=== PATIENT | female | born 2000 | race African-American/Black ===

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

== ENCOUNTER 2020-01-07 06:22 | Inpatient (IN) | payer MEDICAID, OTHER ==
[~2020-01-07] VITALS: Ht 167.6 cm; Wt 112.2 kg
[2020-01-07] MEDS ORDERED: OXYTOCIN 30U/ 0.9% NaCL 500ML 500 ML IV ONE (06:23)
[2020-01-07] MEDS ORDERED: D5%-LACTATED RINGERS 1,000 ML IV SCH (06:23)
[2020-01-07] MEDS ORDERED: MISOPROSTOL 25 MCG TABLET VG PRN (06:30)
[2020-01-07] MEDS ORDERED: TERBUTALINE 1 MG/ML, 1ML SQ PRN (06:30)
[2020-01-07] MEDS ORDERED: FENTANYL PF 100 MCG/2ML IV PRN (06:30)
[2020-01-07] MEDS ORDERED: TERBUTALINE 1 MG/ML, 1ML IVPush PRN (06:30)
[2020-01-07 06:32] VITALS: BP 129/61
[2020-01-07] MEDS ORDERED: PREN-3 PO (06:37)
[2020-01-07 06:49] LABS: BASOPHILS # (AUTO) 0.03 x10^3/uL (0-0.3); BASOPHILS % (AUTO) 0 % (0-1); EOSINOPHILS # (AUTO) 0.22 x10^3/uL (0-0.8); EOSINOPHILS % (AUTO) 2 % (1-7); LYMPHOCYTES # (AUTO) 1.99 x10^3/uL (1-6.1); LYMPHOCYTES % (AUTO) 20 % (22-44); MD NO; MEAN CORPUSCULAR HEMOGLOBIN 26.6 pg (27.0-34.8); MEAN CORPUSCULAR HGB CONC 32.9 g/dL (32.4-35.8); MEAN CORPUSCULAR VOLUME 80.8 fL (80-100); MEAN PLATELET VOLUME 7.2 fL (7.4-10.4); MONOCYTES # (AUTO) 0.78 x10^3/uL (0-1.4); MONOCYTES % (AUTO) 8 % (2-9); NEUTROPHILS # (AUTO) 7.17 x10^3/uL (1.8-8.0); NEUTROPHILS % (AUTO) 70 % (42-75); PLATELET COUNT 348 x10^3/uL (130-400); RED BLOOD COUNT 4.14 x10^6/uL (3.82-5.3); RED CELL DISTRIBUTION WIDTH 14.2 % (9.6-15.2)
[2020-01-07] MEDS: LACTATED RINGERS 1,000 ML IV SCH ×2 (06:53→13:47)
[2020-01-07] MEDS ORDERED: MISOPROSTOL 25 MCG TABLET ONE (07:14)
[2020-01-07] MEDS ORDERED: OXYTOCIN 30U/ 0.9% NaCL 500ML 500 ML ONE (07:14)
[2020-01-07] MEDS ORDERED: NEWBORN KIT ONE (07:14)
[2020-01-07] MEDS ORDERED: ONDANSETRON 2MG/ML, 2ML ONE (09:33)
[2020-01-07] MEDS: ONDANSETRON 2MG/ML, 2ML IVPush PRN (09:34)
[2020-01-07] MEDS ORDERED: FENTANYL/BUPIV./NS/PF 250 ML EPIDCONT ONE (13:30)
[2020-01-07] MEDS ORDERED: LACTATED RINGERS 1,000 ML IVBOLUS PRN ×2 (13:30→17:00)
[2020-01-07] MEDS ORDERED: FENTANYL PF 100 MCG/2ML ONE ×2 (13:35→14:56)
[2020-01-07] MEDS: FENTANYL PF 100 MCG/2ML IVPush PRN ×2 (13:43→14:59)
[2020-01-07] MEDS ORDERED: FENTANYL PF 500 MCG, BUPIVACAINE/PF 0.5%, 30ML 62.5 ML in SODIUM CHLORIDE 0.9% 177.5 ML EPIDCONT SCH (14:00)
[2020-01-07] MEDS ORDERED: FENTANYL/BUPIV./NS/PF 250 ML EPIDCONT SCH (16:43)
[2020-01-07] MEDS ORDERED: LACTATED RINGERS 1,000 ML IV SCH (16:43)
[2020-01-07] MEDS ORDERED: BUPIVACAINE 0.25% ONE (16:46)
[2020-01-07] MEDS ORDERED: EPHEDRINE 50 MG/ML, 1ML IVPush PRN (17:00)
[2020-01-07] MEDS ORDERED: NALOXONE 0.4 MG/ML, 1ML IVPush PRN (17:00)
[2020-01-07] MEDS ORDERED: OXYTOCIN 30U/ 0.9% NaCL 500ML 500 ML IV PRN (17:57)
[2020-01-07] MEDS ORDERED: DIPHENHYDRAMINE 25 MG CAPSULE ONE ×2 (23:16→23:58)
[2020-01-08] MEDS: ONDANSETRON 2MG/ML, 2ML IVPush PRN (00:03)
[2020-01-08] MEDS ORDERED: SODIUM CITRATE/CITRIC ACID 30 ML UDC ONE (00:59)
[2020-01-08] MEDS ORDERED: METOCLOPRAMIDE 5 MG/ML, 2ML ONE (00:59)
[2020-01-08] MEDS ORDERED: LACTATED RINGERS 1,000 ML IV SCH ×2 (01:36→07:28)
[2020-01-08] MEDS ORDERED: MIDAZOLAM 1 MG/ML, 2ML IV PRN (02:00)
[2020-01-08] MEDS ORDERED: ONDANSETRON 2MG/ML, 2ML IVPush PRN ×2 (02:00→10:30)
[2020-01-08] MEDS ORDERED: NALOXONE 0.4 MG/ML, 1ML IVPush PRN (02:00)
[2020-01-08] MEDS ORDERED: PROMETHAZINE 25 MG/ML, 1ML IV PRN (02:00)
[2020-01-08] MEDS ORDERED: ALBUTEROL SULFATE 2.5 MG/3 ML NPPB PRN (02:00)
[2020-01-08] MEDS ORDERED: OXYcodone 5 MG/5 ML ORAL.SOL UDC PO PRN (02:00)
[2020-01-08] MEDS ORDERED: HYDROmorphone 2 MG/ML, 1ML IVPush PRN (02:00)
[2020-01-08] MEDS ORDERED: HYDROcodone/APAP 7.5-325MG/15ML UDC PO PRN (02:00)
[2020-01-08] MEDS ORDERED: MEPERIDINE/PF 25MG/0.5ML IVPush PRN (02:00)
[2020-01-08] MEDS ORDERED: LABETALOL 5MG/ML, 20ML IV PRN (02:00)
[2020-01-08] MEDS ORDERED: hydrALAzine 20 MG/ML, 1ML IV PRN (02:00)
[2020-01-08] MEDS ORDERED: EPHEDRINE 50 MG/ML, 1ML IVPush PRN ×3 (02:00→10:30)
[2020-01-08] MEDS ORDERED: FENTANYL PF 100 MCG/2ML IV PRN (02:00)
[2020-01-08] MEDS ORDERED: SODIUM CITRATE/CITRIC ACID 30 ML UDC PO ONE (02:30)
[2020-01-08] MEDS ORDERED: OXYTOCIN 10 UNITS/ML, 1ML ONE (04:48)
[2020-01-08] MEDS ORDERED: KETOROLAC 30 MG/1 ML ONE (04:48)
[2020-01-08] MEDS ORDERED: PROPOFOL 10 MG/ML, 20ML ONE (04:48)
[2020-01-08] MEDS ORDERED: EPHEDRINE 50 MG/ML, 1ML ONE (04:48)
[2020-01-08] MEDS ORDERED: PHENYLEPHRINE 10 MG/ML ONE (04:48)
[2020-01-08] MEDS ORDERED: CEFAZOLIN 1,000 MG ONE (04:48)
[2020-01-08] MEDS ORDERED: SUCCINYLCHOLINE 20 MG/ML, 10ML ONE (04:48)
[2020-01-08] MEDS ORDERED: ONDANSETRON 2MG/ML, 2ML ONE ×2 (04:48)
[2020-01-08] MEDS ORDERED: DEXAMETHASONE 4 MG/ML, 1ML ONE (04:48)
[2020-01-08] MEDS ORDERED: FENTANYL PF 100 MCG/2ML ONE ×2 (04:52→04:53)
[2020-01-08] MEDS ORDERED: morphine SULFATE/PF 0.5 MG/ML, 10ML ONE (05:38)
[2020-01-08] MEDS ORDERED: LABETALOL 5MG/ML, 20ML ONE (05:59)
[2020-01-08 06:42] LABS: MICROSCOPIC INDICATED
[2020-01-08 06:57] LABS: ALANINE AMINOTRANSFERASE 15 U/L (12-78); ALBUMIN 2.6 g/dL (3.4-5.0); ANION GAP 8 mmol/L (5-15); BILIRUBIN, DIRECT 0.2 mg/dL (0.1-0.2); CALCIUM 9.1 mg/dL (8.5-10.1); CHLORIDE 108 mmol/L (98-107); CREATININE 0.73 mg/dL (0.55-1.02); MEAN CORPUSCULAR HEMOGLOBIN 26.5 pg (27.0-34.8); MEAN CORPUSCULAR HGB CONC 32.9 g/dL (32.4-35.8); MEAN CORPUSCULAR VOLUME 80.6 fL (80-100); MEAN PLATELET VOLUME 7.5 fL (7.4-10.4); PLATELET COUNT 326 x10^3/uL (130-400); RED BLOOD COUNT 4.33 x10^6/uL (3.82-5.3); RED CELL DISTRIBUTION WIDTH 14.1 % (9.6-15.2)
[2020-01-08 07:00] LABS: ALKALINE PHOSPHATASE 160 U/L (45-117); BILIRUBIN,TOTAL 1.2 mg/dL (0.2-1.0); TOTAL PROTEIN 6.7 g/dL (6.4-8.2)
[2020-01-08] MEDS: OXYTOCIN 30U/ 0.9% NaCL 500ML 500 ML IV SCH ×2 (07:28→17:28)
[2020-01-08 07:29] LABS: BASOPHILS # (AUTO) 0.01 x10^3/uL (0-0.3); BASOPHILS % (AUTO) 0 % (0-1); EOSINOPHILS # (AUTO) 0.03 x10^3/uL (0-0.8); EOSINOPHILS % (AUTO) 0 % (1-7); LYMPHOCYTES # (AUTO) 0.97 x10^3/uL (1-6.1); LYMPHOCYTES % (AUTO) 5 % (22-44); MD SCAN; MONOCYTES # (AUTO) 0.84 x10^3/uL (0-1.4); MONOCYTES % (AUTO) 5 % (2-9); NEUTROPHILS # (AUTO) 16.51 x10^3/uL (1.8-8.0); NEUTROPHILS % (AUTO) 90 % (42-75)
[2020-01-08] MEDS: LACTATED RINGERS 1,000 ML IV SCH ×2 (07:35→17:28)
[2020-01-08] MEDS ORDERED: OXYcodone/APAP 5/325MG TABLET PO PRN ×2 (08:00→10:30)
[2020-01-08] MEDS ORDERED: morphine SULFATE 10 MG/ML, 1ML IVPush PRN (08:00)
[2020-01-08] MEDS ORDERED: MISOPROSTOL 200 MCG TABLET PR PRN (08:00)
[2020-01-08] MEDS: PRENATAL VIT/IRON/FA 1 EACH TABLET PO SCH (09:00)
[2020-01-08] MEDS ORDERED: HYDROmorphone 1 MG/ML, 1ML INJ ONE (09:44)
[2020-01-08] MEDS ORDERED: HYDROmorphone 1 MG/ML, 1ML INJ IVPush PRN (10:30)
[2020-01-08] MEDS ORDERED: FENTANYL PF 100 MCG/2ML IVPush PRN (10:30)
[2020-01-08] MEDS ORDERED: DIPHENHYDRAMINE 50 MG/ML, 1ML IV PRN (10:30)
[2020-01-08] MEDS ORDERED: NALOXONE 0.4 MG/ML, 1ML IV PRN ×3 (10:30)
[2020-01-08] MEDS ORDERED: METOCLOPRAMIDE 5 MG/ML, 2ML IV PRN (10:30)
[2020-01-08 13:12] LABS: MEAN CORPUSCULAR HEMOGLOBIN 26.3 pg (27.0-34.8); MEAN CORPUSCULAR HGB CONC 32.3 g/dL (32.4-35.8); MEAN CORPUSCULAR VOLUME 81.6 fL (80-100); MEAN PLATELET VOLUME 7.4 fL (7.4-10.4); PLATELET COUNT 331 x10^3/uL (130-400); RED BLOOD COUNT 4.21 x10^6/uL (3.82-5.3); RED CELL DISTRIBUTION WIDTH 14.1 % (9.6-15.2)
[2020-01-08 13:25] LABS: BASOPHILS # (AUTO) 0.04 x10^3/uL (0-0.3); BASOPHILS % (AUTO) 0 % (0-1); EOSINOPHILS % (AUTO) 0 % (1-7); LYMPHOCYTES # (AUTO) 0.81 x10^3/uL (1-6.1); LYMPHOCYTES % (AUTO) 5 % (22-44); MD SCAN; MONOCYTES # (AUTO) 0.72 x10^3/uL (0-1.4); MONOCYTES % (AUTO) 4 % (2-9); NEUTROPHILS # (AUTO) 16.68 x10^3/uL (1.8-8.0); NEUTROPHILS % (AUTO) 91 % (42-75)
[2020-01-08] MEDS: OXYcodone/APAP 5/325MG TABLET PO PRN ×3 (13:54→23:17)
[2020-01-08] MEDS ORDERED: BUPIVACAINE/PF 0.25% ONE (16:47)
[2020-01-08] MEDS ORDERED: FENTANYL/BUPIV./NS/PF 250 ML EPIDCONT ONE (16:47)
[2020-01-08 19:30] VITALS: BP 124/76
[2020-01-08 19:45] VITALS: BP 116/77
[2020-01-08] MEDS: DOCUSATE 100 MG CAPSULE PO PRN (22:02)
[2020-01-08] MEDS: SIMETHICONE 80 MG CHEW TAB PO PRN (22:02)
[2020-01-08 23:39] VITALS: BP 113/72
[2020-01-09] MEDS: SIMETHICONE 80 MG CHEW TAB PO PRN ×3 (02:57→21:29)
[2020-01-09] MEDS: OXYcodone/APAP 5/325MG TABLET PO PRN ×4 (02:57→21:32)
[2020-01-09 03:24] VITALS: BP 124/76
[2020-01-09] MEDS: LACTATED RINGERS 1,000 ML IV SCH ×2 (03:28→13:28)
[2020-01-09] MEDS: OXYTOCIN 30U/ 0.9% NaCL 500ML 500 ML IV SCH ×2 (03:28→13:28)
[2020-01-09] MEDS: IBUPROFEN 600 MG TABLET PO PRN ×3 (05:56→21:27)
[2020-01-09] MEDS ORDERED: ONDANSETRON 2MG/ML, 2ML IVPush PRN (08:00)
[2020-01-09] MEDS: PRENATAL VIT/IRON/FA 1 EACH TABLET PO SCH (08:03)
[2020-01-09] MEDS: DOCUSATE 100 MG CAPSULE PO PRN ×2 (08:03→21:28)
[2020-01-09 08:15] VITALS: BP 122/73
[2020-01-09] MEDS ORDERED: HYDROcodone/APAP 5/325 TABLET PO PRN (10:30)
[2020-01-09 20:30] VITALS: BP 133/81
[2020-01-10] MEDS: OXYcodone/APAP 5/325MG TABLET PO PRN ×3 (02:14→12:51)
[2020-01-10 07:05] VITALS: BP 139/82
[2020-01-10] MEDS: PRENATAL VIT/IRON/FA 1 EACH TABLET PO SCH (07:46)
[2020-01-10] MEDS: SIMETHICONE 80 MG CHEW TAB PO PRN (07:47)
[2020-01-10] MEDS: DOCUSATE 100 MG CAPSULE PO PRN (07:47)
[2020-01-10] MEDS: IBUPROFEN 600 MG TABLET PO PRN (07:50)
[2020-01-10] MEDS ORDERED: OXYC-302 PO (12:49)
[2020-01-10] MEDS ORDERED: IBUP-1222 PO (12:49)
[2020-01-10] MEDS ORDERED: DIPH,PERTUSS(ACELL),TET VAC/PF NC IM-VACC ONE (16:30)
== END 2020-01-10 17:28 | disposition home or self-care (01) | DRG 788 ==
LOC: LDIP 06:22 → 2NW 01-08 08:10
PROVIDERS: ADMIT Obstetrics & Gynecology; ATTEND Obstetrics & Gynecology
PROC: 10D00Z1 Extraction of Products of Conception, Low, Open Approach (ICD-10-PCS; principal; 2020-01-08)
PROC: 10H07YZ Insertion of Other Device into Products of Conception, Via Natural or Artificial Opening (ICD-10-PCS; 2020-01-08)
DX: O62.0 Primary inadequate contractions (principal); O61.9 Failed induction of labor, unspecified; Z3A.39 39 weeks gestation of pregnancy; Z37.0 Single live birth
CPT/HCPCS: 36415; J7121; 80053; 81001; 82248; 82570; 84156; 84550; 85025; 86592; 86850; 86900; 90715; G0378; J0690; J1100; J1170; J1885; J2274; J2405; J2704; J3010; J3490; J0330; J2270; J2370; J2590; J7120

== ENCOUNTER 2020-09-23 06:22 | Emergency (ER) | payer MEDICAID ==
[~2020-09-23] VITALS: Ht 170.2 cm; Wt 105.3 kg
[~2020-09-23 06:22] MED LIST: IBUP-1222 PO; OXYC-302 PO; PREN-3 PO
--- NOTE | 2020-09-23 07:01 | NUR ---
PT C/O VAGINAL BLEEDING X 2 WEEKS. PT STATES IT WAS RELALY LIGHT AND HAS SINCE GOTTEN HEAVIER, BUT NOT TOO HEAVY. PT TOOK A HOME TEST AND IT CONFIRMED SHE WAS . PT CAME TO ER TO ADDRESS THE VAGINAL BLEEDING. PT DENIES ANY OTHER SYMPTOMS.
--- NOTE | 2020-09-23 07:13 | NUR ---
PT OFF THE FLOOR TO ULTRASOUND.
[2020-09-23 07:14] LABS: BASOPHILS % (AUTO) 1 % (0-1); EOSINOPHILS % (AUTO) 5 % (1-7); LYMPHOCYTES % (AUTO) 40 % (22-44); MEAN CORPUSCULAR HEMOGLOBIN 25.9 pg (27.0-34.8); MEAN CORPUSCULAR HGB CONC 32.9 g/dL (32.4-35.8); MEAN PLATELET VOLUME 7.7 fL (7.4-10.4); MONOCYTES % (AUTO) 7 % (2-9); NEUTROPHILS % (AUTO) 47 % (42-75); PLATELET COUNT 372 x10^3/uL (130-400); RED BLOOD COUNT 4.96 x10^6/uL (3.82-5.3); RED CELL DISTRIBUTION WIDTH 14.5 % (9.6-15.2)
[2020-09-23 07:16] LABS: MD NO
[2020-09-23 07:25] LABS: ALANINE AMINOTRANSFERASE 32 U/L (12-78); ALBUMIN 4.4 g/dL (3.4-5.0); ANION GAP 6 mmol/L (5-15); CALCIUM 9.9 mg/dL (8.5-10.1); CHLORIDE 107 mmol/L (98-107); CREATININE 1.05 mg/dL (0.55-1.02)
[2020-09-23 07:29] LABS: ALKALINE PHOSPHATASE 102 U/L (45-117); BILIRUBIN,TOTAL 1.1 mg/dL (0.2-1.0); TOTAL PROTEIN 8.5 g/dL (6.4-8.2)
[2020-09-23 08:06] LABS: MICROSCOPIC INDICATED
[2020-09-23 09:02] VITALS: BP 152/67
== END 2020-09-23 09:40 | disposition home or self-care (01) ==
LOC: ED 08:48
DX: O03.9 Complete or unspecified spontaneous abortion without complication (principal); N93.9 Abnormal uterine and vaginal bleeding, unspecified
CPT/HCPCS: 36415; 76801; 80053; 81001; 84702; 85025; 87086; 87147; 99284

== ENCOUNTER 2021-01-04 10:42 | Emergency (ER) | payer MEDICAID ==
[~2021-01-04] VITALS: Ht 170.2 cm; Wt 100.6 kg
[~2021-01-04 10:42] MED LIST changes: -OXYC-302 PO; +OXYC1TAB14 PO
--- NOTE | 2021-01-04 10:57 | NUR ---
PT STATES HAS NOT BEEN ABLE TO STOP VOMITING SINCE 9PM LAST NIGHT. PT STARTED DRINKING AROUND 7. DECRIBES VOMIT WATERY AND YELLOW. CANNOT KEEP ANY FLUID OR FOOD DOWN. REPORTS DIARRHEA, DIZZYNESS, AND STOMACH PAIN.
[2021-01-04] MEDS ORDERED: ONDANSETRON 2MG/ML, 2ML ONE (11:20)
[2021-01-04] MEDS ORDERED: FAMOTIDINE 20 MG/2 ML ONE (11:21)
[2021-01-04 11:27] LABS: BASOPHILS % (AUTO) 1 % (0-1); EOSINOPHILS % (AUTO) 1 % (1-7); LYMPHOCYTES % (AUTO) 21 % (22-44); MEAN CORPUSCULAR HEMOGLOBIN 25.9 pg (27.0-34.8); MEAN CORPUSCULAR HGB CONC 33.5 g/dL (32.4-35.8); MONOCYTES % (AUTO) 6 % (2-9); NEUTROPHILS % (AUTO) 72 % (42-75); PLATELET COUNT 313 x10^3/uL (130-400); RED BLOOD COUNT 5.07 x10^6/uL (3.82-5.3); RED CELL DISTRIBUTION WIDTH 15.2 % (9.6-15.2)
[2021-01-04 11:28] LABS: MD NO
[2021-01-04] MEDS ORDERED: ONDANSETRON 2MG/ML, 2ML IVPush ONE (11:30)
[2021-01-04] MEDS ORDERED: FAMOTIDINE 20 MG/2 ML IVPush ONE (11:30)
[2021-01-04] MEDS ORDERED: SODIUM CHLORIDE 0.9% 1,000ML IVBOLUS ONE (11:30)
[2021-01-04 11:40] LABS: ALANINE AMINOTRANSFERASE 27 U/L (12-78); ALBUMIN 4.2 g/dL (3.4-5.0); ANION GAP 5 mmol/L (5-15); CALCIUM 9.3 mg/dL (8.5-10.1); CHLORIDE 113 mmol/L (98-107); CREATININE 0.79 mg/dL (0.55-1.02)
[2021-01-04 11:42] LABS: ALKALINE PHOSPHATASE 95 U/L (45-117); BILIRUBIN,TOTAL 0.7 mg/dL (0.2-1.0); TOTAL PROTEIN 8.1 g/dL (6.4-8.2)
--- NOTE | 2021-01-04 11:58 | NUR ---
PT REPORTS FEELING A LOT BETTER. GOT PT ICE CHIPS.
[2021-01-04 12:20] VITALS: BP 124/53
--- NOTE | 2021-01-04 12:23 | NUR ---
PT GETTING READY FOR DISCHARGE. STATES SHE IS FEELING WAY BETTER.
== END 2021-01-04 12:37 | disposition home or self-care (01) ==
LOC: ED 12:00
DX: K29.00 Acute gastritis without bleeding (principal); R11.2 Nausea with vomiting, unspecified; R10.13 Epigastric pain
CPT/HCPCS: 36415; 80053; 83690; 85025; 96361; 96374; 96375; 99284; J2405; J7030

== ENCOUNTER 2021-01-10 09:06 | Emergency (ER) | payer MEDICAID ==
[~2021-01-10] VITALS: Ht 170.2 cm; Wt 100.0 kg
--- NOTE | 2021-01-10 09:15 | NUR ---
PT BIB EMS FOR SI. PT STATES HX OF DEPRESSION AND FEELING SAD AND DEPRESSED LATELY. NOT ON MEDICATIONS. DENIES ATTEMPT OR PLAN OF SUICIDE. HX OF REHAB WHEN SHE WAS 15 FOR DEPRESSION. DENIES DRUG OR ALCOHOL USE. PT PLEASANT AND COOPERATIVE
[2021-01-10 09:16] VITALS: BP 128/61
[2021-01-10 10:13] LABS: BASOPHILS % (AUTO) 1 % (0-1); EOSINOPHILS % (AUTO) 4 % (1-7); LYMPHOCYTES % (AUTO) 34 % (22-44); MD NO; MEAN CORPUSCULAR HEMOGLOBIN 25.7 pg (27.0-34.8); MEAN CORPUSCULAR HGB CONC 32.9 g/dL (32.4-35.8); MEAN PLATELET VOLUME 8.4 fL (7.4-10.4); MONOCYTES % (AUTO) 6 % (2-9); NEUTROPHILS % (AUTO) 55 % (42-75); PLATELET COUNT 298 x10^3/uL (130-400); RED BLOOD COUNT 4.96 x10^6/uL (3.82-5.3); RED CELL DISTRIBUTION WIDTH 15.1 % (9.6-15.2)
[2021-01-10 10:19] LABS: ANION GAP 4 mmol/L (5-15); CALCIUM 9.7 mg/dL (8.5-10.1); CHLORIDE 108 mmol/L (98-107); SALICYLATE LEVEL 2.3 mg/dL (2.8-20.0)
[2021-01-10 10:26] LABS: ALANINE AMINOTRANSFERASE 23 U/L (12-78); ALKALINE PHOSPHATASE 88 U/L (45-117); BILIRUBIN,TOTAL 0.5 mg/dL (0.2-1.0); CREATININE 0.84 mg/dL (0.55-1.02); TOTAL PROTEIN 7.7 g/dL (6.4-8.2)
--- NOTE | 2021-01-10 10:48 | NUR ---
AWAITING RESULTS FROM LAB AND UA
[2021-01-10 11:05] LABS: AMPHETAMINE SCREEN, URINE Negative (Negative); BARBITURATE SCREEN, URINE Negative (Negative); BENZODIAZEPINE SCREEN, URINE Negative (Negative); CANNABINOID SCREEN, URINE Positive (Negative); COCAINE SCREEN, URINE Negative (Negative); METHADONE SCREEN, URINE Negative (Negative); OPIATE SCREEN, URINE Negative (Negative)
--- NOTE | 2021-01-10 11:36 | NUR ---
DISCUSSED W PATIENT, PURCHASING INTERNSHIP WILL MEET W PT SOON. ORDERED MEAL TRAY
--- NOTE | 2021-01-10 12:25 | NUR ---
SILVANO SANDOVAL AT BEDSIDE.
[2021-01-10] MEDS ORDERED: BUPROPION 75 MG TABLET PO ONE (13:00)
--- NOTE | 2021-01-10 13:00 | NUR ---
MEDICATED PER ORDERS. PT READY TO BE DC
--- NOTE | 2021-01-10 13:16 | NUR ---
Patient/Caregiver given discharge instructions and they have confirmed that they understand the instructions. Patient ambulatory with steady gait.
== END 2021-01-10 13:18 | disposition home or self-care (01) ==
LOC: ED 10:38
DX: F32.9 Major depressive disorder, single episode, unspecified (principal); R45.851 Suicidal ideations
CPT/HCPCS: 36415; 80053; 80299; 80307; 80320; 80329; 84703; 85025; 99283; G0480

== ENCOUNTER 2021-02-19 10:50 | Emergency (ER) | payer MEDICAID ==
[~2021-02-19] VITALS: Ht 167.6 cm; Wt 101.8 kg
--- NOTE | 2021-02-19 11:19 | NUR ---
PROGRAMMER ANALY[employer]: PT TO ROOM FROM [facility] ANDERSON
--- NOTE | 2021-02-19 11:20 | NUR ---
PROTECTION CHIEF [employer]: URINE SPECIMAN WALKED TO LAB.
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
[2021-02-19 11:40] LABS: MICROSCOPIC AUTO
--- NOTE | 2021-02-19 12:12 | NUR ---
PT RESTING ON GURNEY. AWAITING EVAL FROM PROVIDER.
--- NOTE | 2021-02-19 12:22 | NUR ---
LAB AT BEDSIDE.
[2021-02-19 12:36] LABS: BASOPHILS % (AUTO) 1 % (0-1); EOSINOPHILS % (AUTO) 1 % (1-7); LYMPHOCYTES % (AUTO) 25 % (22-44); MEAN CORPUSCULAR HEMOGLOBIN 26.3 pg (27.0-34.8); MEAN CORPUSCULAR HGB CONC 33.4 g/dL (32.4-35.8); MONOCYTES % (AUTO) 6 % (2-9); NEUTROPHILS % (AUTO) 67 % (42-75); PLATELET COUNT 319 x10^3/uL (130-400); RED CELL DISTRIBUTION WIDTH 15.6 % (9.6-15.2)
--- NOTE | 2021-02-19 12:37 | NUR ---
PT UPDATED ON POC. AWAITING US.
[2021-02-19 12:39] LABS: MD NO
--- NOTE | 2021-02-19 12:41 | NUR ---
PT BEING TRANSPORTED TO US VIA GURNEY.
[2021-02-19 12:48] LABS: ANION GAP 6 mmol/L (5-15); CALCIUM 9.4 mg/dL (8.5-10.1); CHLORIDE 108 mmol/L (98-107); CREATININE 0.73 mg/dL (0.55-1.02)
--- NOTE | 2021-02-19 12:52 | NUR ---
REPORT TO MARCELLUS GARCÍA TO ASSUME PRIMARY CARE OF PT.
[2021-02-19] MEDS ORDERED: CEFTRIAXONE 1,000 MG IM ONE (13:30)
[2021-02-19 13:41] VITALS: BP 139/54
[2021-02-19] MEDS ORDERED: CEFTRIAXONE 1,000 MG ONE (13:46)
--- NOTE | 2021-02-19 13:57 | NUR ---
MEL RN: PT AWARE TO WAIT 15 MIN AFTER ADMIN OF ROCEPHIN IM SHOT BEFORE DC. DC PAPERWORK PROVIDED. ALL QUESTIONS ANSWERED. PT OKAY TO DC AT 1310. PT IS AWARE AND AGREEABLE. EDUCATED ON S/SX TO LOOK FOR WHILE IN ROOM. PT VERBALIZES UNDERSTANDING. STATES SHE WILL CALL FOR ANY S/SX.
== END 2021-02-19 14:16 | disposition home or self-care (01) ==
LOC: ED 11:04
DX: O20.0 Threatened abortion (principal); O26.891 Other specified pregnancy related conditions, first trimester; R42 Dizziness and giddiness; Z3A.01 Less than 8 weeks gestation of pregnancy
CPT/HCPCS: 36415; 76801; 80048; 81001; 82040; 84702; 85025; 87086; 96372; 99284; J0696